=== PATIENT | male | born 1960 | race Caucasian/White ===

== ENCOUNTER 2019-10-15 21:30 | Emergency (ER) | payer OTHER ==
[~2019-10-15] VITALS: Ht 177.8 cm; Wt 80.0 kg
[~2019-10-15 21:30] MED LIST: CARAFATE1 GM/10 ML OR; DEXILANT60 MG PO; DIOVAN80 MG PO; REGLAN10 MG OR
[2019-10-15 22:42] LABS: HEMATOCRIT 35.9 % (39.0-50.0); HEMOGLOBIN 11.7 g/dl (14.0-18.0); IMMATURE GRANULOCYTES 0.5 % (0.0-5.0); MEAN CORPUSCULAR HGB 28.7 pG CALC (26.0-32.0); MEAN CORPUSCULAR HGB CONC 32.6 g/dL CAL (32.0-36.0); NEUT# 10.02 thou/uL (1.82-7.42); RED BLOOD COUNT 4.08 mill/uL (4.70-6.10); RED CELL DISTRI WIDTH 13.1 % (11.5-15.5)
[2019-10-15] MEDS ORDERED: DOXYCYCL HYC100 MG PO (23:06)
[2019-10-15 23:40] VITALS: BP 134/77
[2019-10-16] MEDS ORDERED: BENICAR20 MG PO (00:40)
== END 2019-10-15 23:43 | disposition home or self-care (01) | DRG 558 ==
LOC: ED 21:30
PROVIDERS: Family Medicine
DX: M71.122 Other infective bursitis, left elbow (principal); I12.9 Hypertensive chronic kidney disease with stage 1 through stage 4 chronic kidney disease, or unspecified chronic kidney disease; N18.9 Chronic kidney disease, unspecified